=== PATIENT | female | born 1975 | race Two or more races ===

== ENCOUNTER 2017-09-21 14:26 | Emergency (ER) | payer BC ==
[2017-09-21] MEDS ORDERED: Acetaminophen TAB* 325 MG PO ONE (14:43)
[2017-09-21] MEDS ORDERED: NS 0.9% 1000 ML* 1,000 ML IV ONE ×2 (14:44→16:03)
--- NOTE | 2017-09-21 15:38 | RAD ---
Indication: Fever. 2 views the chest including dual energy views demonstrates airspace disease in the left base consistent with left lower lobe pneumonia. No pleural fluid is identified. No mediastinal shift is noted. Heart is of normal size and configuration. IMPRESSION: Findings consistent with left lower lobe pneumonia.
--- NOTE | 2017-09-21 15:48 | ED ---
Respiratory - HPI Summary HPI Summary: 42 female presents to ED with complaints of fever, coughing, some trouble breathing and body aches/headache for the past week and worsening. Patient states it is sometimes hard to breath and take deep breaths, especially when laying down. Was seen by PCP twice who stated she should have further testing here to rule out influenza or pneumonia. No vomiting but has had decreased appetite. Has been drinking fluids. Has been taking tylenol for fever. No PMHx. No chest pain or trouble breathing currently. Cough is sometimes productive. No hemoptysis. Denies sore throat, nasal congestion, ear pain. Has not taken any medications other than tylenol. - History of Current Complaint Chief Complaint: EDFluSymptoms Stated Complaint: NEEDS CHEST XRAY Time Seen by Provider: 09/21/17 14:43 Hx Obtained From: Patient Onset/Duration: Sudden Onset, Lasting Weeks - 1, Still Present, Worse Since Initial Severity: Mild Current Severity: Mild Pain Intensity: 3 Character: Cough (Productive) Sputum Amount: Scant Sputum Color: Clear, Yellow Aggravating Factor(s): Deep Breaths - makes her cough, Recumbent Position Alleviating Factor(s): Nothing Associated Signs and Symptoms: Fever, SOB, Chills - Allergy/Home Medications Allergies/Adverse Reactions: Allergies Allergy/AdvReac Type Severity Reaction Status Date / Time No Known Allergies Allergy Verified 10/20/14 17:34 PMH/Surg Hx/FS Hx/Imm Hx Endocrine/Hematology History: Denies: Hx Anticoagulant Therapy, Hx Diabetes Cardiovascular History: Denies: Hx Hypertension Respiratory History: Denies: Hx Asthma, Hx Chronic Obstructive Pulmonary Disease (COPD), Other Respiratory Problems/Disorders - Surgical History Surgery Procedure, Year, and Place: n/a - Immunization History Immunizations Up to Date: Yes Infectious Disease History: No Infectious Disease History: Denies: Traveled Outside the [place] in Last 30 Days - Family History Known Family History: Positive: None - Social History Alcohol Use: None Substance Use Type: Reports: None Smoking Status (MU): Never Smoked Tobacco Review of Systems Positive: Fever, Chills, Fatigue Cardiovascular: Negative Positive: Shortness Of Breath, Cough Gastrointestinal: Negative - except + decreased appetite Positive: Myalgia Positive: Headache All Other Systems Reviewed And Are Negative: Yes Physical Exam Triage Information Reviewed: Yes Vital Signs On Initial Exam: Initial Vitals Temp Pulse Resp BP Pulse Ox 102.7 F 119 19 130/81 98 09/21/17 14:38 09/21/17 14:38 09/21/17 14:38 09/21/17 14:38 09/21/17 14:38 tachycardia and temp noted. given antipyretic and fluids Vital Signs Reviewed: Yes Appearance: Positive: No Pain Distress, Well-Nourished, Ill-Appearing Skin: Positive: Warm, Skin Color Reflects Adequate Perfusion, Dry, Erythema @, Other - erythematous cheeks b/l. Negative: Cold, Numb, Cyanosis @, Mass @ Head/Face: Positive: Normal Head/Face Inspection Eyes: Positive: Conjunctiva Clear ENT: Positive: Hearing grossly normal, Pharynx normal, TMs normal, Uvula midline. Negative: Nasal congestion, Nasal drainage, Tonsillar swelling, Tonsillar exudate Dental: Positive: Cervical Lymphadenopathy Neck: Positive: Supple, Nontender Respiratory/Lung Sounds: Positive: Clear to Auscultation, Breath Sounds Present , Decreased Breath Sounds - left lower, Wheezes - left lower lung field. Negative: Rales, Rhonchi Cardiovascular: Positive: Normal, RRR, Pulses are Symmetrical in both Upper and Lower Extremities, Tachycardia. Negative: Murmur, Rub Abdomen Description: Positive: Nontender, Soft. Negative: No Organomegaly, Bruit, CVA Tenderness (R), CVA Tenderness (L), Distended, Guarding, Peritoneal Signs Bowel Sounds: Positive: Present Musculoskeletal: Positive: Normal, Strength/ROM Intact Neurological: Positive: Normal, Sensory/Motor Intact, Alert, Oriented to Person Place, Time Diagnostics - Vital Signs Vital Signs Temp Pulse Resp BP Pulse Ox 09/21/17 15:26 99 109/65 97 09/21/17 15:00 107 106/59 97 09/21/17 14:48 115 97 09/21/17 14:46 118/67 09/21/17 14:38 102.7 F 119 19 130/81 98 - Laboratory Lab Results: Lab Results 09/21/17 Range/Units 14:49 Influenza A (Rapid) Negative (Negative) Influenza B (Rapid) Negative (Negative) Result Diagrams: 09/21/17 15:37 09/21/17 15:37 Lab Statement: Any lab studies that have been ordered have been reviewed, and results considered in the medical decision making process. - Radiology chest Xray Interpretation: Positive (See Comments) - Findings consistent with left lower lobe pneumonia. Radiology Interpretation Completed By: Radiologist Re-Evaluation - Re-Evaluation First Eval Re-Evaluation Time: 16:58 Change: Improved - is feeling better after duoneb, fluids and medication, updated on results, will treat outpatient. slight tachycardia however patient is ill, just had duneb and usually has higher HR baseline. CTA and RRR on re- eval prior to d/c Disposition - Course Course Of Treatment: given fluids, tylenol/ibuprofen, and chest xray obtained. influneza obtained and negative. labs obtained and showed, slight anemia, elevated WBC count at 16.2 with left shift, slight dehydration and hypokalemia at 3.3 Elevated LFTS. no comparable labs accessible. pt does have history of anemia. Normal urinalysis. started on levofloxacin and given 500mg IV while in ED. chest xray shows left lower lobe pneumonia. vitals were febrile and tachy however improved after treatment. given duoneb, and had relief. patient as no other contirbuting risk factors or concerns for outpatient treatment at this time. continue antipyretics and antibiotic at home. increase fluids and rest. educated that is contagious and to take precaution. inhaler as needed. follow up with PCP within 3 days. aware of worsening signs and symptoms to watch out for and to return if occur. - Differential Dx - Cardiopulmonary Differential Diagnoses - Cardiopulmonary: Influenza, Lower Resp Infection - pneumonia, Other - URI/bronchitis - Diagnoses Provider Diagnoses: Pneumonia Discharge - Discharge Plan Condition: Stable Disposition: HOME Prescriptions: Albuterol HFA INHALER* [Ventolin HFA Inhaler*] 1 puff INH Q6H PRN #1 mdi PRN Reason: Sob/Wheezing Levofloxacin TAB* [Levaquin TAB*] 500 mg PO DAILY #9 tab Patient Education Materials: Levofloxacin (By mouth), Community Acquired Pneumonia (ED) Referrals: Sandra Cardona NP [Primary Care Provider] - Additional Instructions: Continue antibiotic, starting tomorrow for the next 9 days. Take until entire dose is completed even if symptoms improve. Increase fluid intake. Recommend eating bananas due to your potassium being slightly low. Continue taking ibuprofen and tylenol every 4-6 hours for fever and body aches. Take with food. Rest and take precautions as this is contagious. Cover mouth and wash hands frequently. Use inhaler as needed for shortness of breath or difficulty breathing. Follow up with PCP in 2-3 days to ensure improvement. Avoid physical activity while taking antibitoic. Any new or worsening symptoms please seek medical attention promptly, as discussed.
[2017-09-21] MEDS ORDERED: Levofloxacin 500 MG IVPREMIX(* 500 MG/100 ML BAG IVPB ONE (15:49)
[2017-09-21 15:53] LABS: ABS Basophils 0 10^3/ul (0-0.2); ABS Eosinophils 0 10^3/ul (0-0.6); ABS Lymphocytes 1.2 10^3/ul (1.0-4.8); ABS Monocytes 1.3 10^3/ul (0-0.8); ABS Neutrophils 14.4 10^3/ul (1.5-7.7); ABS Nucleated RBC 0 10^3/ul; Eosinophil % 0.1 % (0-6); Hematocrit 33 % (35-47); Hemoglobin 11.3 g/dl (12.0-16.0); Lymphocyte % 7.2 % (25-47); Mean Corpuscular HGB Conc 34 g/dl (31-36); Mean Corpuscular Hemoglobin 30 pg (27-31); Mean Corpuscular Volume 89 fL (80-97); Mean Platelet Volume 7 um3 (7.4-10.4); Nucleated Red Blood Cells % 0.2; Platelet Count 293 10^3/ul (150-450); Red Blood Count 3.74 10^6/ul (4.0-5.4); Red Cell Distribution Width 13 % (10.5-15); White Blood Count 16.9 10^3/ul (3.5-10.8)
[2017-09-21 15:58] LABS: EGFR Non-African American 118.7 (>60)
[2017-09-21 16:00] LABS: Urine Appearance Clear; Urine Blood 2+ (Negative); Urine Color Straw; Urine Ketones Negative (Negative); Urine Protein Negative (Negative); Urine Specific Gravity 1.002 (1.010-1.030); Urine Urobilinogen Negative (Negative)
[2017-09-21] MEDS ORDERED: Albuterol/Ipratropium NEB.SOL* Albuterol 2.5 MG/Ipratropium 0.5 MG 3 ML INH ONE (16:03)
[2017-09-21] MEDS ORDERED: Ibuprofen TAB* 600 MG PO ONE (16:03)
[2017-09-21 17:03] VITALS: BP 104/57
== END 2017-09-21 17:07 | disposition home or self-care (01) ==
LOC: ED 14:26
DX: J18.9 Pneumonia, unspecified organism (principal)
CPT/HCPCS: 36415; 71046; 80053; 81003; 81015; 83605; 85025; 87502; 94640; 96361; 96374; 99283; A9270-GY; J1956